=== PATIENT | male | born 1960 | race African-American/Black ===

== ENCOUNTER 2017-08-16 00:51 | Emergency (ER) | payer BC, OTHER ==
[2017-08-16 01:38] VITALS: PULSE 63; TEMP 97.5; BMI 28.1
[2017-08-16 01:49] LABS: BASOPHIL 0.3 % (0-2.0); EOSINOPHIL 2.1 % (0-4.5); MCH 29.4 pg (25.7-33.7); MCHC 34.7 g/dl (32.0-35.9); MEAN CELL VOLUME 84.9 fl (80-96); MEAN PLT VOLUME 9.6 fl (7.5-11.1); NEUTROPHILS 55.3 % (42.8-82.8); PLATELET COUNT 179 K/MM3 (134-434); RDW 14.2 % (11.9-15.9)
[2017-08-16 02:03] LABS: INR 1.06 (0.82-1.09); PROTHROMBIN TIME (PATIENT) 11.7 SEC (9.98-11.88)
[2017-08-16 02:06] LABS: ACTIVATED PTT 31.9 SECONDS (26.9-34.4)
[2017-08-16 02:10] LABS: ALBUMIN 3.7 g/dl (3.4-5.0); ALK PHOS 64 U/L (45-117); ANION GAP 9 (8-16); CALCIUM 8.6 mg/dL (8.5-10.1); CO2 27 mmol/L (21-32); CREATININE 1.1 mg/dL (0.7-1.3); GLUCOSE,RANDOM 110 mg/dL (74-106); SGOT/AST 33 U/L (15-37); SGPT/ALT 31 U/L (12-78); TOT PROT 6.9 g/dl (6.4-8.2)
--- NOTE | 2017-08-16 02:11 | PDOC ---
History of Present Illness - General Chief Complaint: CVA/TIA Stated Complaint: NUMBNESS LT ARM Time Seen by Provider: 08/16/17 01:06 - History of Present Illness Initial Comments: 08/16/17 02:03 "The patient is a 57 year old male, with significant past medical history of HTN , who presents to the emergency department with transient episode of numbness and tingling in his left arm. He explains that the first noticed the numbness and tingling at 12:00am when he woke up. He states that he went to bed at 9pm and did not notice the numbness at that time. The entire episode lasted about 30 minutes, and he currently denies any symptoms. He did NOT have any weakness associated with the numbness. Denies numbness/weakness/tingling in any extremity currently. Denies CRONIN/N/V. Denies slurred speech or confusion. Denies chest pain, SOB, nausea vomiting. He notes that he may have been sleeping on the left arm prior to this episode. Denies fever, chills, nausea, vomiting. Denies headache, lightheadedness, dizziness, changes in vision. Denies chest pain, SOB. Denies abdominal pain. Allergies: none reported PCP: Dr. Elkin Cuevas Past History - Past Medical History Allergies/Adverse Reactions: Allergies Allergy/AdvReac Type Severity Reaction Status Date / Time No Known Allergies Allergy Verified 08/16/17 01:38 Home Medications: Ambulatory Orders Lisinopril [Prinivil] 5 mg PO DAILY 08/16/17 - Suicide/Smoking/Psychosocial Hx Smoking History: Never smoked Have you smoked in the past 12 months: No Information on smoking cessation initiated: No Hx Alcohol Use: No Drug/Substance Use Hx: No Review of Systems - Review of Systems Comments:: 08/16/17 02:07 "GENERAL/CONSTITUTIONAL: No fever or chills. No weakness. HEAD, EYES, EARS, NOSE AND THROAT: No change in vision. No ear pain or discharge. No sore throat. CARDIOVASCULAR: No chest pain or shortness of breath. RESPIRATORY: No cough, wheezing, or hemoptysis. GASTROINTESTINAL: No nausea, vomiting, diarrhea or constipation. GENITOURINARY: No dysuria, frequency, or change in urination. MUSCULOSKELETAL: No joint or muscle swelling or pain. No neck or back pain. SKIN: No rash NEUROLOGIC: +numbness and tingling of the LUE. No headache, vertigo, loss of consciousness, or change in strength/sensation. ENDOCRINE: No increased thirst. No abnormal weight change. HEMATOLOGIC/LYMPHATIC: No anemia, easy bleeding, or history of blood clots. ALLERGIC/IMMUNOLOGIC: No hives or skin allergy." *Physical Exam - Vital Signs Last Vital Signs Temp Pulse Resp BP Pulse Ox 97.5 F L 63 19 143/95 100 08/16/17 01:34 08/16/17 01:34 08/16/17 01:34 08/16/17 01:34 08/16/17 01:34 - Physical Exam Comments: 08/16/17 02:07 "GENERAL: Awake, alert, and fully oriented, in no acute distress HEAD: No signs of trauma EYES: PERRLA, EOMI, sclera anicteric, conjunctiva clear ENT: Auricles normal inspection, hearing grossly normal, nares patent, oropharynx clear without exudates. Moist mucosa NECK: Nontender, no stepoffs, Normal ROM, supple, no lymphadenopathy, JVD, or masses LUNGS: Breath sounds equal, clear to auscultation bilaterally. No wheezes, and no crackles HEART: Regular rate and rhythm, normal S1 and S2, no murmurs, rubs or gallops ABDOMEN: Soft, nontender, normoactive bowel sounds. No guarding, no rebound. No masses EXTREMITIES: Normal range of motion, no edema. No clubbing or cyanosis. No cords, erythema, or tenderness NEUROLOGICAL: Cranial nerves II through XII intact. 5/5 strength and sensation in all extremities, Normal speech, normal gait, normal cerebellar tests, no pronator drift. SKIN: Warm, Dry, normal turgor, no rashes or lesions noted." Heart Score/ECG Review - ECG Impressions Comment:: 08/16/17 02:07 NSR, no KAREN/STDs, no TWIs, intervals wnl, axis wnl ED Treatment Course - LABORATORY CBC & Chemistry Diagram: 08/16/17 01:39 08/16/17 01:39 - ADDITIONAL ORDERS Additional order review: 08/16/17 01:39 RBC 4.68 MCV 84.9 MCHC 34.7 RDW 14.2 MPV 9.6 Neutrophils % 55.3 Lymphocytes % 33.0 Monocytes % 9.3 Eosinophils % 2.1 Basophils % 0.3 - RADIOLOGY Radiology Studies Ordered: Category Date Time Status HEAD CT WITHOUT CONTRAST [CT] Stat CT Scan 08/16/17 01:16 Ordered Medical Decision Making - Medical Decision Making 08/16/17 02:08 57 M with transient episode of L arm numbness. TIA/CVA unlikely as pt with very few risk factors (only HTN). Neuro exam currently completely normal. Pt's symptoms likely 2/2 transient peripheral neuropathy caused by sleeping on his arm. Also consider cervical radiculopathy, though pt without any neck pain. - CT head - Labs, trop - EKG - Pt's ABCD2 score is 2 (for elevated BP and 30 minute duration of symptoms) 08/16/17 02:46 CBC,CMP WBC 5.0 K/mm3 (4.0-10.0) 08/16/17 01:39 RBC 4.68 M/mm3 (4.00-5.60) 08/16/17 01:39 Hgb 13.8 GM/dL (11.7-16.9) 08/16/17 01:39 Hct 39.8 % (35.4-49) 08/16/17 01:39 MCV 84.9 fl (80-96) 08/16/17 01:39 MCH 29.4 pg (25.7-33.7) 08/16/17 01:39 MCHC 34.7 g/dl (32.0-35.9) 08/16/17 01:39 RDW 14.2 % (11.9-15.9) 08/16/17 01:39 Plt Count 179 K/MM3 (134-434) 08/16/17 01:39 MPV 9.6 fl (7.5-11.1) 08/16/17 01:39 Neutrophils % 55.3 % (42.8-82.8) 08/16/17 01:39 Lymphocytes % 33.0 % (8-40) 08/16/17 01:39 Monocytes % 9.3 % (3.8-10.2) 08/16/17 01:39 Eosinophils % 2.1 % (0-4.5) 08/16/17 01:39 Basophils % 0.3 % (0-2.0) 08/16/17 01:39 Sodium 139 mmol/L (136-145) 08/16/17 01:39 Potassium 4.8 mmol/L (3.5-5.1) 08/16/17 01:39 Chloride 103 mmol/L (98-107) 08/16/17 01:39 Carbon Dioxide 27 mmol/L (21-32) 08/16/17 01:39 Anion Gap 9 (8-16) 08/16/17 01:39 BUN 16 mg/dL (7-18) 08/16/17 01:39 Creatinine 1.1 mg/dL (0.7-1.3) 08/16/17 01:39 Creat Clearance w eGFR > 60 (>60) 08/16/17 01:39 Random Glucose 110 mg/dL (74-106) H 08/16/17 01:39 Calcium 8.6 mg/dL (8.5-10.1) 08/16/17 01:39 Total Bilirubin 1.0 mg/dL (0.2-1.0) 08/16/17 01:39 AST 33 U/L (15-37) 08/16/17 01:39 ALT 31 U/L (12-78) 08/16/17 01:39 Alkaline Phosphatase 64 U/L (45-117) 08/16/17 01:39 Creatine Kinase 293 IU/L (39-308) 08/16/17 01:39 Troponin I < 0.02 ng/ml (0.00-0.05) 08/16/17 01:39 Total Protein 6.9 g/dl (6.4-8.2) 08/16/17 01:39 Albumin 3.7 g/dl (3.4-5.0) 08/16/17 01:39 CTH negative. Pt reassessed - continues to feel well with no numbness and no other deficits. I have discussed with pt the option of further inpatient evaluation, including an MRI. However, he would rather follow up with neurology as outpt. Pt understands risk of recurrent stroke if this was indeed a TIA. Pt still prefers to go home at this time. The patient is clinically sober, free from distracting injury, appears to have intact insight and judgment and reason and in my opinion has the capacity to make decisions. Clinically stable for DC at this time. *DC/Admit/Observation/Transfer Diagnosis at time of Disposition: Numbness of hand - Discharge Dispostion Disposition: HOME Condition at time of disposition: Fair - Referrals Referrals: Elkin Cuevas MD [Primary Care Provider] - Prakash Higuera MD [Staff Physician] - - Patient Instructions Printed Discharge Instructions: DI for Numbness/tingling Additional Instructions: Although your tests were normal today, it is still possible your left arm numbness was a result of a TIA, or ministroke. Please call the number provided to make an appointment with a neurologist as soon as possible. You will need an MRI of your brain. If you experience recurrent numbness, or any new symptoms such as weakness, confusion, slurred speech, or any other concerning symptoms, return to the ER immediately. - Attestations Physician Attestion: 08/16/17 02:58 I, Dr. Vadim Delgado MD, attest that this document has been prepared under my direction and personally reviewed by me in its entirety. I further attest, that it accurately reflects all work, treatment, procedures and medical decision -making performed by me.
[2017-08-16 02:12] LABS: TROPONIN I < 0.02 ng/ml (0.00-0.05)
[2017-08-16 02:14] LABS: CPK 293 IU/L (39-308)
[2017-08-16 03:30] VITALS: BP 119/86
--- NOTE | 2017-08-16 09:11 | EKG ---
Test Reason : Blood Pressure : / mmHG Vent. Rate : 064 BPM Atrial Rate : 064 BPM P-R Int : 202 ms QRS Dur : 086 ms QT Int : 390 ms P-R-T Axes : 048 -14 018 degrees QTc Int : 402 ms NORMAL SINUS RHYTHM MINIMAL VOLTAGE CRITERIA FOR LVH, MAY BE NORMAL VARIANT NO PREVIOUS ECGS AVAILABLE Confirmed by RUMA CORDOVA MD ([id number]) on 08/16/2017 9:11:19 AM Referred By: Confirmed By:RUMA CORDOVA MD
== END 2017-08-16 03:30 | disposition home or self-care (01) ==
LOC: JER 00:51
DX: R20.0 Anesthesia of skin (principal); I10 Essential (primary) hypertension
CPT/HCPCS: 36415; 70450-TC; 80053; 82553; 84484; 85025; 85610; 85730; 93005; 93010; 99283-25

== ENCOUNTER → 2020-12-21 | Day surgery (SDC) | payer OTHER | END | disposition home or self-care (01) | LOC: JRADIR 10:14 | PROVIDERS: ATTEND Internal Medicine | PROC: 0G9H3ZX Drainage of Right Thyroid Gland Lobe, Percutaneous Approach, Diagnostic (ICD-10-PCS; principal; 2020-12-21) | DX: E04.1 Nontoxic single thyroid nodule (principal) | CPT/HCPCS: 76942; 88173; 88305-TC ==

== ENCOUNTER → 2020-12-28 | Day surgery (SDC) | payer OTHER | END | disposition home or self-care (01) | LOC: JRADIR 11:19 | PROVIDERS: ATTEND Internal Medicine | PROC: 0G9G3ZX Drainage of Left Thyroid Gland Lobe, Percutaneous Approach, Diagnostic (ICD-10-PCS; principal; 2020-12-28) | DX: E04.1 Nontoxic single thyroid nodule (principal) | CPT/HCPCS: 76942 ==